=== PATIENT | female | born 1950 | race Caucasian/White ===

== ENCOUNTER → 2016-10-15 | Outpatient (CLI) | payer MEDICARE ==
--- NOTE | 2016-10-16 07:12 | MM ---
Reason for exam: screening (asymptomatic). Last mammogram was performed 1 year ago. History: Patient is postmenopausal. Family history of premenopausal breast cancer in mother at age 50 and breast cancer in maternal aunt at age 84. Benign left US cyst aspiration of the left breast, March 21, 2006. Cyst aspiration of the left breast, March 08, 2003. Benign excisional biopsy of the right breast, 1983. Taking other hormone for 10 months. Physical Findings: A clinical breast exam by your physician is recommended on an annual basis and results should be correlated with mammographic findings. MG 3D Screening Mammo W/Cad Bilateral CC and MLO view(s) were taken. Prior study comparison: October 10, 2015, bilateral MG 3d screening mammo w/cad. October 04, 2014, bilateral MG screening mammo w CAD. There are scattered fibroglandular densities. Finding: There is an intermediate concern, suspicious 10 mm lobulated, irregular mass located 4 cm from the nipple in the upper outer quadrant, middle position. New finding since October 10, 2015 and October 04, 2014. ASSESSMENT: Incomplete: need additional imaging evaluation, BI-RAD 0 RECOMMENDATION: Special view mammogram of the left breast. If lesion persists on supplemental views, image directed ultrasound is recommended. [facility] will attempt to contact patient to return for supplemental views and ultrasound if indicated.
== END | disposition home or self-care (01) ==
LOC: RADMAMWWP 07:43
PROVIDERS: ATTEND Obstetrics & Gynecology
DX: Z12.31 Encounter for screening mammogram for malignant neoplasm of breast (principal); R92.2 Inconclusive mammogram
CPT/HCPCS: 77063; G0202

== ENCOUNTER → 2016-10-18 | Outpatient (CLI) | payer MEDICARE ==
--- NOTE | 2016-10-18 09:36 | MM ---
Reason for exam: additional evaluation requested from abnormal screening. Last mammogram was performed less than 1 month ago. History: Patient is postmenopausal. Family history of premenopausal breast cancer in mother at age 50 and breast cancer in maternal aunt at age 84. Benign left US cyst aspiration of the left breast, March 21, 2006. Cyst aspiration of the left breast, March 08, 2003. Benign excisional biopsy of the right breast, 1983. Taking other hormone for 10 months. Physical Findings: Nurse did not find any significant physical abnormalities on exam. MG 3D Work Up W/Cad LT Spot compression CC, spot compression MLO, and ML view(s) were taken of the left breast. Prior study comparison: October 15, 2016, bilateral MG 3d screening mammo w/cad. October 10, 2015, bilateral MG 3d screening mammo w/cad. Finding #1: There is a 14 and 12 mm mass in the upper outer quadrant and central retroareolar position of the left breast. Finding #2: There are typically benign calcifications in the left breast. Increase in size since October 15, 2016 and October 10, 2015. These results were verbally communicated with the patient and result sheet given to the patient on 10/18/16. ASSESSMENT: Incomplete: need additional imaging evaluation, BI-RAD 0 RECOMMENDATION: Ultrasound of the left breast.
--- NOTE | 2016-10-18 09:38 | USB ---
Reason for exam: additional evaluation requested from abnormal screening. History: Patient is postmenopausal. Family history of premenopausal breast cancer in mother at age 50 and breast cancer in maternal aunt at age 84. Benign left US cyst aspiration of the left breast, March 21, 2006. Cyst aspiration of the left breast, March 08, 2003. Benign excisional biopsy of the right breast, 1983. Taking other hormone for 10 months. US Breast Workup Limited LT Left breast ultrasound demonstrates a 1.2 x 0.6 x 1.0cm oval, cystic lesion at 2 o'clock and a 1.0 x 1.1 x 1.3cm lobular, mixed lesion at 3 o'clock. These results were verbally communicated with the patient and result sheet given to the patient on 10/18/16. ASSESSMENT: Suspicious, BI-RAD 4 RECOMMENDATION: Aspiration of the left breast. Called Dr. Hale with mammographic findings and has scheduled an appointment for the patient for 10/31/16 at 1:[address] Bryant. PRELIMINARY REPORT CALLED AND FAXED TO DR. BRYANT ON 10/18/16 AT 300/TMP.
== END | disposition home or self-care (01) ==
LOC: RADMAMWWP 06:49
PROVIDERS: ATTEND Obstetrics & Gynecology
DX: R92.8 Other abnormal and inconclusive findings on diagnostic imaging of breast (principal)
CPT/HCPCS: 76642; G0206; G0279

== ENCOUNTER → 2016-11-12 | Day surgery (SDC) | payer MEDICARE ==
[2016-11-12 11:57] VITALS: RESP 16; BMI 27.4
[2016-11-12 13:55] VITALS: BP 144/76; PULSE 76; TEMP 98.1
--- NOTE | 2016-11-12 15:41 | USB ---
EXAMINATION TYPE: US biopsy breast VAD LT, Postbiopsy MG diagnostic mammo LT wo CAD DATE OF EXAM: 11/12/2016 CLINICAL HISTORY: 66-year-old female R92.8 Abnormal Mammogram. TECHNIQUE: Ultrasound guided core biopsy of left breast. COMPARISON: 10/18/2016 FINDINGS: The procedure of ultrasound guided core biopsy was explained to the patient. Benefits, alternatives, and risks were discussed. An informed consent was then obtained. The patient was placed in supine positioning for imaging and for the procedure. The overlying skin was prepped and draped in usual sterile fashion. The patient's 2:00 cyst has significantly decreased in size in the interval. The complex cyst versus cyst posterior at the 3:00 position zone A measures 1.1 x 0.8 x 1.1 cm and is targeted for biopsy. Lidocaine was used as anesthetic into the skin and subcutaneous tissue up to area of concern in the 3:00 left breast. Under ultrasound guidance, a 13-gauge vacuum-assisted mammotome Elite biopsy gun was used to obtain 7 core samples. The lesion collapsed after the first pass. Following this, a ribbon clip was left in lesion. The patient tolerated the procedure well without any immediate complication. The patient was kept in the radiology department for short stay after the procedure and then discharged home in stable condition. Post procedure mammogram shows surgical clip at the site of previous 3:00 mass. IMPRESSION: Successful, uncomplicated ultrasound guided core biopsy of area of complex cyst versus cyst cluster in the 3:00 left breast corresponding to the mammographic mass. Full pathology results to follow. Pathology Results: Benign BREAST, LEFT, CORE BIOPSY: FIBROCYSTIC CHANGES INCLUDING APOCRINE CYST WALL WITH ADJACENT FIBROSIS. Recommendation Follow up mammogram of the left breast in 6 months. AIMEE
== END ==
LOC: RADUSWWP 11:05
PROVIDERS: ATTEND Surgery Plastic and Reconstructive Surgery
DX: N60.02 Solitary cyst of left breast (principal); R92.8 Other abnormal and inconclusive findings on diagnostic imaging of breast; N60.32 Fibrosclerosis of left breast; Z88.5 Allergy status to narcotic agent; Z88.0 Allergy status to penicillin
CPT/HCPCS: 88305; 19083; G0206; A4648; J2001

== ENCOUNTER → 2017-05-16 | Outpatient (CLI) | payer MEDICARE ==
--- NOTE | 2017-05-16 10:32 | MM ---
Reason for exam: additional evaluation requested from prior study. Last mammogram was performed 6 months ago. History: Patient is postmenopausal. Family history of premenopausal breast cancer in mother at age 50 and breast cancer in maternal aunt at age 84. Benign US biopsy breast VAD LT of the left breast, November 12, 2016. Benign left US cyst aspiration of the left breast, March 21, 2006. Cyst aspiration of the left breast, March 08, 2003. Benign excisional biopsy of the right breast, 1983. Taking other hormone for 10 months. Physical Findings: Nurse Summary: 1 x 1.5cm nodule in the left breast at 2 o'clock (nurse ts). MG 3D Diag Mammo W/Cad EUSEBIO Bilateral CC and MLO view(s) were taken. Prior study comparison: November 12, 2016, left breast MG diagnostic mammo LT wo CAD. October 18, 2016, left breast MG 3d work up w/cad LT. There are scattered fibroglandular densities. Finding: There are typically benign round calcifications in both breasts. Previous mammotome biopsy in the left breast. There is a chronic nodularity bilaterally, larger in size. There is no discrete abnormality. These results were verbally communicated with the patient and result sheet given to the patient on 05/16/17. ASSESSMENT: Benign, BI-RAD 2 RECOMMENDATION: Routine screening mammogram of both breasts in 1 year.
--- NOTE | 2017-05-16 10:33 | USB ---
Reason for exam: additional evaluation requested from prior study. History: Patient is postmenopausal. Family history of premenopausal breast cancer in mother at age 50 and breast cancer in maternal aunt at age 84. Benign US biopsy breast VAD LT of the left breast, November 12, 2016. Benign left US cyst aspiration of the left breast, March 21, 2006. Cyst aspiration of the left breast, March 08, 2003. Benign excisional biopsy of the right breast, 1983. Taking other hormone for 10 months. US Breast LT Left breast ultrasound includes all four quadrants, the retroareolar region and axilla. Finding demonstrates a 1.2 x 0.6 x 1.2cm oval, cystic lesion at 1-2 o'clock, stable. These results were verbally communicated with the patient and result sheet given to the patient on 05/16/17. ASSESSMENT: Benign, BI-RAD 2 RECOMMENDATION: Routine screening mammogram of both breasts in 1 year.
== END | disposition home or self-care (01) ==
LOC: RADMAMWWP 08:03
PROVIDERS: ATTEND Surgery Plastic and Reconstructive Surgery
DX: R92.8 Other abnormal and inconclusive findings on diagnostic imaging of breast (principal)
CPT/HCPCS: 77066; 76641; G0279

== ENCOUNTER → 2017-11-12 | Outpatient (CLI) | payer MEDICARE ==
--- NOTE | 2017-11-12 11:13 | BD ---
EXAMINATION TYPE: Axial Bone Density DATE OF EXAM: 11/12/2017 CLINICAL HISTORY: Postmenopausal female Height: 61 Weight: 145 Comparison: Prior DEXA bone scan September 29, 2013 FRAX RISK QUESTIONS: Alcohol (3 or more units per day): no Family History (Parent hip fracture): no Glucocorticoids (More than 3mos): no (Ex: prednisone, prednisolone, methylprednisolone, dexamethasone, and hydrocortisone). History of Fracture in Adulthood: yes, ankle Secondary Osteoporosis: 1. Type 1 Diabetes: no 2. Hyperthyroidism: no 3. Menopause before 45: no, 48 4. Malnutrition: no 5. Chronic liver disease: no Rheumatoid Arthritis: no Current Tobacco Use: no RISK FACTORS HISTORY OF: Surgery Hip(right): yes When: 2013 replacement Family History of Osteoporosis: unsure Active: no Diet low in dairy products/other sources of calcium: no Postmenopausal woman: yes Take estrogen and/or progesterone medications: no Lost more than 2 inches in height since high school: unsure, patient states may have been 64 inches t all at one time Frequent falls: no Poor Health: no Hyperparathyroidism: no Adrenal Insufficiency: no MEDICATIONS: Prednisone or other steroids: no Thyroid Medications: yes Which medication: Synthroid How Lon or 5 years Osteoporosis Medications: not now Which medication: Fosamax How Long: years ago Additional Medications: blood pressure meds, calcium Additional History: EXAM MEASUREMENTS: Bone mineral densitometry was performed using the [employer]. Bone mineral density as measured about the Lumbar spine is: ----- L1-L4(G/cm2): 1.364 T Score Values are as follows: ----- L2: 1.5 ----- L3: 1.4 ----- L4: 1.3 ----- L1-L4: 1.5 Bone mineral density has: Decreased -7.4% since study of: 09/29/2013 Bone mineral density about the L hip (g/cm2): 0.874 T Score values are as follows: -----L Neck: -1.2 -----L Total: -0.3 Bone mineral density has: Decreased -2.5% since study of: 09/29/2013 IMPRESSION: Osteopenia (T Score between -2.5 and -1) now present femoral neck level left hip. Bone density decrea sed or diminished from prior. Bone density felt falsely elevated in the low back due to reactive scle rosis is as underlying scoliosis is present. There is slightly increased risk of fracture and the patient may be considered for treatment. Re-Screen 2-5 years. NOTE: T-SCORE=SD OF THE YOUNG ADULT MEAN.
== END | disposition home or self-care (01) ==
LOC: RADBDWWP 09:02
PROVIDERS: ATTEND Obstetrics & Gynecology
DX: M85.852 Other specified disorders of bone density and structure, left thigh (principal)
CPT/HCPCS: 77080

== ENCOUNTER → 2018-06-09 | Outpatient (CLI) | payer MEDICARE ==
--- NOTE | 2018-06-10 09:49 | MM ---
Reason for exam: screening (asymptomatic). Last mammogram was performed 1 year and 1 month ago. History: Patient is postmenopausal. Family history of premenopausal breast cancer in mother at age 50 and breast cancer in maternal aunt at age 84. Benign US biopsy breast VAD LT of the left breast, November 12, 2016. Benign left US cyst aspiration of the left breast, March 21, 2006. Cyst aspiration of the left breast, March 08, 2003. Benign excisional biopsy of the right breast, 1983. Taking other hormone for 10 months. Physical Findings: A clinical breast exam by your physician is recommended on an annual basis and results should be correlated with mammographic findings. MG 3D Screening Mammo W/Cad Bilateral CC and MLO view(s) were taken. Prior study comparison: May 16, 2017, bilateral MG 3d diag mammo w/cad EUSEBIO. November 12, 2016, left breast MG diagnostic mammo LT wo CAD. The breast tissue is heterogeneously dense. This may lower the sensitivity of mammography. Stable benign calcifications. There is chronic nodularity bilaterally. There is no dominant lesion. No significant changes when compared with prior studies. ASSESSMENT: Benign, BI-RAD 2 RECOMMENDATION: Routine screening mammogram of both breasts in 1 year.
== END | disposition home or self-care (01) ==
LOC: RADMAMWWP 10:13
PROVIDERS: ATTEND Obstetrics & Gynecology
DX: Z12.31 Encounter for screening mammogram for malignant neoplasm of breast (principal); Z80.3 Family history of malignant neoplasm of breast
CPT/HCPCS: 77063; 77067

== ENCOUNTER → 2020-06-27 | Outpatient (CLI) | payer MEDICARE ==
--- NOTE | 2020-06-27 16:04 | BD ---
EXAMINATION TYPE: Axial Bone Density DATE OF EXAM: 06/27/2020 COMPARISON: 11/12/2017 CLINICAL HISTORY: Height: 61 IN Weight: 151 LBS FRAX RISK QUESTIONS: Alcohol (3 or more units per day): YES RISK FACTORS HISTORY OF: Surgery to Hip(right): RT HIP REPLACEMENT When: APPROX 2014 Active: YES Postmenopausal woman: AGE 49 Lost more than 2 inches in height since high school: YES 3" MEDICATIONS: Thyroid Medications: YES Which medication: Levothyroxine How Lon YEARS Osteoporosis Medications: NOT NOW Which medication: Fosamax How Lon YEARS Additional Medications: CALCIUM, VIT D, LEVOTHYROXINE,BLOOD PRESSURE MEDS, NORVASC, OMEPRAZOLE, EXAM MEASUREMENTS: Bone mineral densitometry was performed using the [employer]. Bone mineral density as measured about the Lumbar spine is: ----- L1-L4(G/cm2): 1.377 T Score Values are as follows: ----- L2: 1.5 ----- L3: 1.5 ----- L4: 1.7 ----- L1-L4: 1.6 Bone mineral density has: Increased 1.6% since study of: 11/12/2017 Bone mineral density about the L hip (g/cm2): 0.892 T Score values are as follows: -----L Neck: -1.1 -----L Total: -0.5 Bone mineral density has: Decreased -3.3% since study of: 11/12/2017 IMPRESSION: Normal (Values between +1 and -1 indicate normal bone mass). Consider repeating this study in 5 year s or sooner if there is some new clinical indication. NOTE: T-SCORE=SD OF THE YOUNG ADULT MEAN.
--- NOTE | 2020-06-28 11:57 | MM ---
Reason for exam: screening (asymptomatic). Last mammogram was performed 1 year ago. History: Patient is postmenopausal. Family history of premenopausal breast cancer in mother at age 50 and breast cancer in maternal aunt at age 84. Benign US biopsy breast VAD LT of the left breast, November 12, 2016. Benign left US cyst aspiration of the left breast, March 21, 2006. Cyst aspiration of the left breast, March 08, 2003. Benign excisional biopsy of the right breast, 1983. Taking other hormone for 10 months. Physical Findings: A clinical breast exam by your physician is recommended on an annual basis and results should be correlated with mammographic findings. MG 3D Screening Mammo W/Cad Bilateral CC and MLO view(s) were taken. Prior study comparison: June 15, 2019, bilateral MG 3d screening mammo w/cad. June 09, 2018, bilateral MG 3d screening mammo w/cad. There are scattered fibroglandular densities. No significant changes when compared with prior studies. ASSESSMENT: Benign, BI-RAD 2 RECOMMENDATION: Routine screening mammogram of both breasts in 1 year.
== END | disposition home or self-care (01) ==
LOC: RADMAMWWP 09:13
PROVIDERS: ATTEND Obstetrics & Gynecology
DX: Z12.31 Encounter for screening mammogram for malignant neoplasm of breast (principal); M85.9 Disorder of bone density and structure, unspecified
CPT/HCPCS: 77063; 77067; 77080

== ENCOUNTER → 2021-07-11 | Outpatient (CLI) | payer MEDICARE ==
--- NOTE | 2021-07-13 11:15 | MM ---
Reason for exam: screening (asymptomatic). Last mammogram was performed 1 year ago. History: Patient is postmenopausal. Family history of premenopausal breast cancer in mother at age 50 and breast cancer in maternal aunt at age 84. Benign US biopsy breast VAD LT of the left breast, November 12, 2016. Benign left US cyst aspiration of the left breast, March 21, 2006. Cyst aspiration of the left breast, March 08, 2003. Benign excisional biopsy of the right breast, 1983. Taking other hormone for 10 months. Physical Findings: A clinical breast exam by your physician is recommended on an annual basis and results should be correlated with mammographic findings. MG 3D Screening Mammo W/Cad Bilateral CC and MLO view(s) were taken. Prior study comparison: June 27, 2020, bilateral MG 3d screening mammo w/cad. June 15, 2019, bilateral MG 3d screening mammo w/cad. There are scattered fibroglandular densities. Previous mammotome biopsy in the left breast. Small benign oil cyst calcifications bilaterally. No significant changes when compared with prior studies. ASSESSMENT: Benign, BI-RAD 2 RECOMMENDATION: Routine screening mammogram of both breasts in 1 year.
== END | disposition home or self-care (01) ==
LOC: RADMAMWWP 08:54
PROVIDERS: ATTEND Obstetrics & Gynecology
DX: Z12.31 Encounter for screening mammogram for malignant neoplasm of breast (principal); Z78.0 Asymptomatic menopausal state; Z80.3 Family history of malignant neoplasm of breast
CPT/HCPCS: 77063; 77067

== ENCOUNTER → 2022-07-31 | Outpatient (CLI) | payer MEDICARE ==
--- NOTE | 2022-08-01 09:45 | MM ---
Reason for Exam: Screening (asymptomatic). Last screening mammogram was performed 12 month(s) ago. Patient History: Menarche at age 9. First Full-Term at age 18. Postmenopausal. 1983, Benign Excisional Biopsy on the right side. 11/12/2016, Benign Core Biopsy on the left side. 03/21/2006, Benign Cyst Aspiration on the left side. 03/08/2003, Cyst Aspiration on the Left side. Maternal aunt had breast cancer, age 84. Mother had breast cancer, age 50. Risk Values: Lisette 5 year model risk: 5.3%. NCI Lifetime model risk: 13.4%. Prior Study Comparison: 10/15/2016 Bilateral Screening Mammogram, [facility]. 10/18/2016 Left Diagnostic Mammogram, [facility]. 11/12/2016 Left Diagnostic Mammogram, [facility]. 05/16/2017 Bilateral Diagnostic Mammogram, [facility]. 06/09/2018 Bilateral Screening Mammogram, [facility]. 06/15/2019 Bilateral Screening Mammogram, [facility]. 06/27/2020 Bilateral Screening Mammogram, [facility]. 07/11/2021 Bilateral Screening Mammogram, [facility]. Tissue Density: The breast tissue is almost entirely fat. Findings: Analyzed By CAD. Left breast BI-RADS a clip. Scattered bilateral benign-appearing calcifications. There is no suspicious group of microcalcifications or new suspicious mass in either breast. Overall Assessment: Benign, BI-RAD 2 Management: Screening Mammogram of both breasts in 1 year. A clinical breast exam by your physician is recommended on an annual basis and results should be correlated with mammographic findings. [facility] will attempt to contact patient to return for supplemental views and ultrasound if indicated. Electronically signed and approved by: Kiran Shrestha DO
== END | disposition home or self-care (01) ==
LOC: RADMAMWWP 08:17
PROVIDERS: ATTEND Obstetrics & Gynecology
DX: Z12.31 Encounter for screening mammogram for malignant neoplasm of breast (principal); Z80.3 Family history of malignant neoplasm of breast; Z78.0 Asymptomatic menopausal state
CPT/HCPCS: 77063; 77067

== ENCOUNTER → 2023-08-07 | Outpatient (CLI) | payer MEDICARE ==
--- NOTE | 2023-08-08 00:56 | MM ---
Reason for Exam: Screening (asymptomatic). Last mammogram was performed 1 year(s) and 1 month(s) ago. Patient History: Menarche at age 9. First Full-Term at age 18. Postmenopausal. 1983, Benign Excisional Biopsy on the right side. 11/12/2016, Benign Core Biopsy on the left side. 03/21/2006, Benign Cyst Aspiration on the left side. 03/08/2003, Cyst Aspiration on the Left side. Maternal aunt had breast cancer, age 84. Mother had breast cancer, age 50. Risk Values: Lisette 5 year model risk: 5.4%. NCI Lifetime model risk: 12.7%. Prior Study Comparison: 05/16/2017 Bilateral Diagnostic Mammogram, [facility]. 06/09/2018 Bilateral Screening Mammogram, [facility]. 06/15/2019 Bilateral Screening Mammogram, [facility]. 06/27/2020 Bilateral Screening Mammogram, [facility]. 07/11/2021 Bilateral Screening Mammogram, [facility]. 07/31/2022 Bilateral MG 3D screening mammo w/cad, [facility]. Tissue Density: The breasts are heterogeneously dense, which may obscure small masses. Findings: Analyzed By CAD. The pattern is symmetrical. There are scattered benign spherical and punctate calcifications bilaterally. A core marker is within the left breast. No suspicious groups of microcalcifications, spiculated or lobular masses, architectural distortion or other secondary signs of malignancy are mammographically apparent. Overall Assessment: Benign, BI-RAD 2 Management: Screening Mammogram of both breasts in 1 year. A negative mammogram report should not preclude additional follow up of suspicious palpable abnormalities. Patient should continue monthly self breast exam. A clinical breast exam by your physician is recommended on an annual basis and results should be correlated with mammographic findings. Electronically signed and approved by: Aiden Mancia D.O. Radiologis
== END | disposition home or self-care (01) ==
LOC: RADMAMWWP 07:11
PROVIDERS: ATTEND Family Medicine
DX: Z12.31 Encounter for screening mammogram for malignant neoplasm of breast (principal); Z78.0 Asymptomatic menopausal state; Z80.3 Family history of malignant neoplasm of breast
CPT/HCPCS: 77063; 77067

== ENCOUNTER → 2024-06-09 | Outpatient (CLI) | payer MEDICARE ==
--- NOTE | 2024-06-09 12:22 | XR ---
EXAMINATION TYPE: XR skull complete DATE OF EXAM: 06/09/2024 12:12 PM COMPARISON: None. CLINICAL INDICATION: Female, 73 years old with history of MRI Clearance, pain, history of tympanoplas ty left side TECHNIQUE: 4 view(s) obtained. FINDINGS: Calvarium appears intact. No acute fractures are evident. Paranasal sinuses are clear. Orbital floors and medial orbital masters are intact. Nasal bone is intact. There is dental hardware present No metallic foreign bodies contraindicate MRI are evident within the field of view. IMPRESSION: 1. No radiopaque foreign bodies identified to contraindicate MRI. [facility], , 06/09/2024 12:20 PM
== END | disposition home or self-care (01) ==
LOC: RADXRMAIN 11:37
PROVIDERS: ATTEND Orthopaedic Surgery
DX: M25.562 Pain in left knee (principal); Z97.2 Presence of dental prosthetic device (complete) (partial)
CPT/HCPCS: 70260

== ENCOUNTER → 2024-08-10 | Outpatient (CLI) | payer MEDICARE ==
--- NOTE | 2024-08-10 11:57 | BD ---
EXAMINATION TYPE: Axial Bone Density DATE OF EXAM: 08/10/2024 CLINICAL HISTORY: 73 years old Female. ICD-10 CODE: Z78.0 ASYMPTOMATIC MENOPAUSAL STATE , Additional History: Height: 60 in Weight: 137 lbs FRAX RISK QUESTIONS: History of Fracture in Adulthood: rt ankle fx age 27 Secondary Osteoporosis: 3. Menopause before 45: age 39 HISTORY OF: Surgery to Hip(right): rt hip replacement 2012 MEDICATIONS: Thyroid Medications: yes Which medication: Levothyroxine How Lon+ years Osteoporosis Medications: not now Which medication: Fosamax How Lon years EXAM MEASUREMENTS: Bone mineral densitometry was performed using the [employer]. Bone mineral density as measured about the Lumbar spine is: ----- L1-L4(G/cm2): 1.462 T Score Values are as follows: ----- L1: 1.4 ----- L2: 1.8 ----- L3: 2.6 ----- L4: 3.0 ----- L1-L4: 2.3 Z Score Values are as follows: ----- L1: 3.3 ----- L2: 3.6 ----- L3: 4.5 ----- L4: 4.8 ----- L1-L4: 4.2 Bone mineral density has: Increased 6.2% since study of: 06/27/2020 Bone mineral density about the L hip (g/cm2): 0.930 T Score values are as follows: -----L Neck: -1.2 -----L Total: -0.6 Z Score values are as follows: -----L Neck: 0.7 -----L Total: 1.2 Bone mineral density has: Decreased -1.5% since study of: 06/27/2020 FRAX%s: The graph provided illustrates a 19.1% chance for a major osteoporotic fx and a 3.9% chance f or the hips probability for fx in 10 years time. IMPRESSION: Osteopenia (T Score between -2.5 and -1). There is slightly increased risk of fracture and the patient may be considered for treatment. Re-Screen 2-5 years. NOTE: T-SCORE=SD OF THE YOUNG ADULT MEAN. [facility], , 08/10/2024 11:55 AM
== END | disposition home or self-care (01) ==
LOC: RADBDWWP 07:05
PROVIDERS: ATTEND Family Medicine
DX: Z13.820 Encounter for screening for osteoporosis (principal); M85.852 Other specified disorders of bone density and structure, left thigh; Z78.0 Asymptomatic menopausal state
CPT/HCPCS: 77080

== ENCOUNTER → 2024-08-10 | Outpatient (CLI) | payer MEDICARE ==
--- NOTE | 2024-08-10 08:42 | MM ---
Reason for Exam: Screening (asymptomatic). Last screening mammogram was performed 12 month(s) ago. Patient History: Menarche at age 9. First Full-Term at age 18. Postmenopausal. 1983, Benign Excisional Biopsy on the right side. 11/12/2016, Benign Core Biopsy on the left side. 03/21/2006, Benign Cyst Aspiration on the left side. 03/08/2003, Cyst Aspiration on the Left side. Maternal aunt had breast cancer, age 84. Mother had breast cancer, age 50. Risk Values: Lisette 5 year model risk: 5.4%. NCI Lifetime model risk: 12.0%. Prior Study Comparison: 07/11/2021 Bilateral Screening Mammogram, [facility]. 07/31/2022 Bilateral MG 3D screening mammo w/cad, [facility]. 08/07/2023 Bilateral MG 3D screening mammo w/cad, [facility]. Tissue Density: There are scattered areas of fibroglandular density. Findings: Analyzed By CAD. A few scattered benign round calcifications are unchanged. Microclip left breast from prior biopsy. There is no suspicious group of microcalcifications or new suspicious mass in either breast. Overall Assessment: Benign, BI-RAD 2 Management: Screening Mammogram of both breasts in 1 year. See note below in regards to the patient's increased 5 year Lisette score. Patient should continue monthly self-breast exams. A clinical breast exam by your physician is recommended on an annual basis. This exam should not preclude additional follow-up of suspicious palpable abnormalities. Note on Lisette scores and lifetime risk: 1. A Lisette score greater than 3% is considered moderate risk. If this is the case, consider specialist referral to assess eligibility for a risk reducing agent. 2. If overall lifetime risk for the development of breast cancer is 20% or higher, the patient may qualify for future screening with alternating mammogram and breast MRI. [facility], , 08/10/2024 8:39 AM. Electronically signed and approved by: Fortino Collins M.D. Radiologist
== END | disposition home or self-care (01) ==
LOC: RADMAMWWP 07:03
PROVIDERS: ATTEND Family Medicine
DX: Z12.31 Encounter for screening mammogram for malignant neoplasm of breast (principal); R92.323 Mammographic fibroglandular density, bilateral breasts; Z78.0 Asymptomatic menopausal state; Z80.3 Family history of malignant neoplasm of breast
CPT/HCPCS: 77063; 77067